=== PATIENT | female | born 1970 | race Caucasian/White ===

== ENCOUNTER → 2021-09-06 | Outpatient (CLI) | payer BC | LOC: MAMO 11:59 | DX: Z12.31 Encounter for screening mammogram for malignant neoplasm of breast (principal) | CPT/HCPCS: 77063; 77067 ==

== ENCOUNTER → 2021-09-24 | Outpatient (CLI) | payer BC | LOC: US 13:50 | DX: R92.8 Other abnormal and inconclusive findings on diagnostic imaging of breast (principal) | CPT/HCPCS: 76641-RT ==

== ENCOUNTER → 2022-05-19 | Outpatient (CLI) | payer BC ==
[~2022-05-19] MED LIST: HYDROCHLOROTHIA25 MG PO; NORVASC5 MG PO; VITAMIN D325 MCG PO
[2022-05-19 13:54] LABS: BUN/CREATININE RATIO 25 (0-10)
== END ==
LOC: OPSV2 12:30
PROVIDERS: Orthopaedic Surgery
DX: Z01.818 Encounter for other preprocedural examination (principal); T84.84XA Pain due to internal orthopedic prosthetic devices, implants and grafts, initial encounter; Z88.2 Allergy status to sulfonamides
CPT/HCPCS: 71046; 80048; 93005

== ENCOUNTER → 2022-05-25 | Day surgery (SDC) | payer BC ==
[~2022-05-25] VITALS: Ht 167.6 cm; Wt 79.4 kg
== END | disposition home or self-care (01) ==
LOC: OR 07:00
DX: T84.84XA Pain due to internal orthopedic prosthetic devices, implants and grafts, initial encounter (principal); I10 Essential (primary) hypertension; F17.290 Nicotine dependence, other tobacco product, uncomplicated; Z79.899 Other long term (current) drug therapy; Z88.2 Allergy status to sulfonamides; Z88.5 Allergy status to narcotic agent; Z72.89 Other problems related to lifestyle
CPT/HCPCS: 73600; 76000; 84703; J0690; J2250; J2704; J3010